=== PATIENT | female | born 1980 | race Hispanic/Latino ===

== ENCOUNTER 2022-04-04 14:29 | Outpatient (CLI) | payer BC | END 2022-04-04 14:30 | disposition home or self-care (01) | LOC: BICMAMMO 14:29 | PROVIDERS: ATTEND Family Medicine | DX: Z12.31 Encounter for screening mammogram for malignant neoplasm of breast (principal); N63.41 Unspecified lump in right breast, subareolar | CPT/HCPCS: 77063; 77067 ==

== ENCOUNTER 2022-04-12 14:33 | Outpatient (CLI) | payer BC | END 2022-04-12 14:34 | disposition home or self-care (01) | LOC: BICULT 14:33 | PROVIDERS: ATTEND Family Medicine | DX: R92.8 Other abnormal and inconclusive findings on diagnostic imaging of breast (principal) ==